=== PATIENT | male | born 1980 | race Caucasian/White ===

== ENCOUNTER 2019-05-26 20:17 | Emergency (ER) | payer OTHER ==
[~2019-05-26] VITALS: Ht 185.4 cm; Wt 90.7 kg
[2019-05-26 20:25] VITALS: Ht 185.4 cm; Wt 90.7 kg
[2019-05-26 22:35] LABS: BASOPHIL % 1.3 % (0-2); PLATELET COUNT 195 x10^3mcL (130-400); RED CELL DISTRIBUTION WIDTH 14.1 % (11.5-14.5)
[2019-05-26 22:48] LABS: CALCIUM 9.2 mg/dL (8.5-10.1); CARBON DIOXIDE 30.1 mmol/L (21-32); CHLORIDE SERUM 102 mmol/L (98-107); CREATININE SERUM 1.3 mg/dL (0.7-1.3); GFR1 > 60 mL/min; GLUCOSE SERUM 86 mg/dL (74-106); POTASSIUM SERUM 3.8 mmol/L (3.5-5.1); SODIUM SERUM 140 mmol/L (136-145)
[2019-05-26 22:52] LABS: ALBUMIN 4.5 g/dL (3.4-5.0); ALKALINE PHOSPHATASE 98 U/L (46-116); ALT/SGPT 17 U/L (16-63); AMYLASE 46 U/L (25-115); AST/SGOT 12 U/L (15-37); BILIRUBIN TOTAL 1.1 mg/dL (0.20-1.00); TOTAL PROTEIN, SERUM 8.7 g/dL (6.4-8.2)
[2019-05-26 23:01] LABS: FREE T4 1.12 ng/dL (0.76-1.46); T4(THYROXINE) 9.8 ug/dL (4.7-13.3)
[2019-05-27 00:06] LABS: T3 TOTAL 1.06 ng/mL
[2019-05-27 01:15] VITALS: BP 137/83
== END 2019-05-27 01:15 | disposition home or self-care (01) ==
LOC: ED 20:17
PROVIDERS: Emergency Medicine
DX: K11.21 Acute sialoadenitis (principal)
CPT/HCPCS: 84439; J1885; J7030; Q9967